=== PATIENT | male | born 1975 | race African-American/Black ===

== ENCOUNTER 2016-10-04 22:15 | Emergency (ER) | payer MEDICAID ==
[2016-10-04 23:12] LABS: BASOPHILS 0.6 % (0.0-2.0); EOSINOPHILS 2.2 % (0-7); HEMOGLOBIN 15.2 g/dL (13.5-17.5); IMMATURE GRANULOCYTES 0.2 % (0-5); LYMPHOCYTES 33.1 % (15-50); MCH 29.6 pg (26.0-34.0); MCHC 35.3 g/dL (31.0-37.0); MCV 83.7 fL (80.0-100.0); MEAN PLATELET VOLUME 11.6 fL (7.4-10.4); MONOCYTES 4.1 % (2-11); NEUTROPHILS 59.8 % (40-80); PLATELET COUNT 251 10x3/uL (130-400); RBC 5.14 10x6/uL (4.20-6.10); RDW 12.7 % (11.5-14.5); WBC 10.9 10x3/uL (4.8-10.8)
== END 2016-10-05 00:20 | disposition home or self-care (01) ==
LOC: D.ER 22:15
PROVIDERS: Emergency Medicine
DX: J06.9 Acute upper respiratory infection, unspecified (principal); F17.200 Nicotine dependence, unspecified, uncomplicated; G40.909 Epilepsy, unspecified, not intractable, without status epilepticus

== ENCOUNTER 2017-02-11 09:44 | Emergency (ER) | payer MEDICAID | END 2017-02-11 10:55 | disposition home or self-care (01) | LOC: D.ER 09:44 | DX: G40.909 Epilepsy, unspecified, not intractable, without status epilepticus (principal) ==